=== PATIENT | male | born 1970 | race Caucasian/White ===

== ENCOUNTER 2020-10-27 14:18 | Outpatient (CLI) | payer BC, SELFPAY ==
[2020-10-27 15:30] LABS: SARS-CoV-2 Ag Positive (Negative)
== END 2020-10-27 14:19 | disposition home or self-care (01) ==
LOC: CHSLAB 14:23
PROVIDERS: PCP Internal Medicine; Visit Provider Internal Medicine
DX: U07.1 COVID-19 (principal)
CPT/HCPCS: 87426

== ENCOUNTER 2021-04-24 11:46 | Outpatient (CLI) | payer BC, SELFPAY ==
--- NOTE | ~2021-04-24 | XR_ITS ---
XR_CERV2-3V_CR DATE: 04/24/2021 12:04 INDICATION: Neck pain radiating to left upper extremity TECHNIQUE: AP, open-mouth, lateral views COMPARISON: None FINDINGS: There is 2.5 mm retrolisthesis at C3-4. There is reversal of the lower cervical curvature. C1 and C2 are normally aligned and the odontoid process is intact. No fracture or dislocation or lock ed facet is evident. No prevertebral soft tissue swelling. IMPRESSION: 2.5 mm retrolisthesis at C3-4 Reversal of lower cervical curvature Reviewed, dictated and finalized at [facility]. Reviewed, dictated and finalized at [facility].
== END 2021-04-24 11:47 | disposition home or self-care (01) ==
LOC: CHSIMG 11:48
PROVIDERS: PCP Internal Medicine; Visit Provider Internal Medicine
DX: M54.2 Cervicalgia (principal)
CPT/HCPCS: 72040

== ENCOUNTER 2021-04-25 15:02 | Outpatient (RCR) | payer BC, SELFPAY ==
--- NOTE | 2021-04-25 16:10 | PTOPEVAL ---
Thank you for referring Perry Rodney to [facility].? The patient is scheduled to be seen for therapy? ____x/week for ___ weeks. Please review, sign, date and return this plan of care AICHA. I agree with and certify that the following plan of care is medically necessary. Referring Physician Date Admitting Provider: Attending Provider: Dinesh Kirby MD Referring Provider: *PT Outpatient Evaluation Start: 04/25/21 15:03 Freq: Status: Active Protocol: Document 04/25/21 15:[address] [facility] (Rec: 04/25/21 16:[address] [facility] [id number]) Therapy Assessment Status Assessment Status Assessment Status Evaluation Evaluation Information Problem Diagnosis L cervical radiculopathy Onset 04/24/21 Additional Evaluation Detail quick dash = 79% functionally declined Subjective Information Perry Rodney is a 50 year Query Text:As Reported By Patient/ old male who reports L Family shoulder and cervical pain which began last morning. He notes Radiating pain and numbness into L shoulder extending to his posterior forearm. Rx medication: prednisone ( modified dose pack), celexoxib , cyclobenzaprine taken per MD 's orders. Frequent cervical flex/ext and rotation required for job. 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, ThumbAd in Comments [place]- would be able to look down at computer monitor and look side to side/ up and down without any pain Pain Assessment Timing of Pain Assessment Timing of Pain Assessment Assessment Pain Scale Pain Scale Used Numeric (1 - 10) Self Report Pain Assessment Left Neck Reported Pain Level 2 Lowest Pain Intensity 0 Greatest Pain Intensity 8 Pain Score Pain Score 2: Self Report Interventions Used Interventions Used By Clinicians Activity or ADL's,Electrical Stimulation,Exercise,Heat Cervical and Lumbar ROM Cervical ROM Cervical Flexion (0-60) 40 Query Text:Active in Degrees Cervical Extension (0-70) 29 Query Text:Active in Degrees Cervical Lateral Flexion Right (0-50) 35 Query Text:Active in Degrees Cervical Lateral Flexion Left (0-50) 25 Query Text:Active in Deg
--- NOTE | 2021-07-17 16:14 | PCPTNOTE ---
patient has not been to therapy in nearly 2 months. patient was last re-evaluated and doing well on 05/19/21. as of this date, he will be dc'd from skilled PT services and all progress towards goals will be taken from his most recent evaluation/note. BRENDON
== END 2021-05-19 09:10 | disposition home or self-care (01) ==
LOC: CHSPT 15:02
PROVIDERS: PCP Internal Medicine; Visit Provider Internal Medicine
DX: M54.12 Radiculopathy, cervical region (principal)
CPT/HCPCS: 97012; 97014; 97110; 97161; G0283

== ENCOUNTER 2023-12-09 05:48 | Inpatient (IN) | payer BC, SELFPAY ==
[2023-12-09] VITALS (9 sets, daily range): BP systolic 133–159; BP diastolic 85–96; PULSE 83–100; RESP 15–21; TEMP 36–36.9; O2SAT 93–98; BMI 31.8
--- NOTE | ~2023-12-09 | CT_ITS ---
Non-contrast CT scan of the Abdomen and Pelvis Clinical indication: Abdominal pain Technique: 2.5 mm axial scans were obtained through the abdomen and pelvis without intravenous or or al contrast. Dose reduction technique was used on this scan by utilizing automated exposure control a nd iterative reconstruction technique. The dose-length product (DLP) was 1019.70 mGy-cm. Findings: Images through the lung bases reveal bibasilar atelectatic changes. There is no evidence of renal or ureteral calculi. The kidneys and the ureters are nondilated. There is diffuse fatty infiltration of liver. Pancreatic head is prominent, with surrounding mild inf lammatory change, most compatible with acute pancreatitis. The spleen, gallbladder, and adrenals appe ar normal. There is no aortic aneurysm. There is no evidence of bowel obstruction. Probable reactive wall thickening of the distal duodenum. Small fat-containing umbilical hernia noted. Prominent stool noted in the right colon. Images through the pelvis were performed. There is no evidence of ascites or lymphadenopathy. Urinary bladder unremarkable. Prostate gland and seminal vesicles are unremarkable. Impression: Acute pancreatitis. Diffuse fatty infiltration of liver. Small fat-containing hernia. Prominent stool right colon. Correlate for constipation. Reviewed, dictated and finalized at [facility]. UETTE OPERATOR Impression: Acute pancreatitis. Diffuse fatty infiltration of liver. Small fat-containing hernia. Prominent stool right colon. Correlate for constipation.
--- NOTE | ~2023-12-09 | XR_ITS ---
EXAMINATION: XR abdomen/kub 1V DATE: 12/10/2023 11:34 INDICATION: Abdominal pain and distention. Shortness of breath. TECHNIQUE: A supine view of the abdomen on 3 radiographs was obtained. COMPARISON: CT abdomen and pelvis 12/09/2023 FINDINGS: There is mild atelectasis in right lower lung zone. There are no dilated loops of bowel. Th ere are phleboliths in the pelvis. IMPRESSION: 1. Nonobstructive bowel gas pattern. Reviewed, dictated and finalized at [facility]. ACCOUNTS BANKING REPRESENTATIVE
--- NOTE | ~2023-12-09 | US_ITS ---
EXAMINATION: US abdomen limited DATE: 12/10/2023 11:00 INDICATION: Severe abdominal pain. Pancreatitis. TECHNIQUE: Multiple grayscale and Doppler ultrasound images of the abdomen were obtained. COMPARISON: CT abdomen and pelvis 12/09/2023 FINDINGS: The head of the pancreas demonstrates heterogeneous echogenicity, consistent with acute int erstitial pancreatitis. There is diffuse hepatic steatosis. No liver surface nodularity. There is nor mal flow in main portal vein. The gallbladder is normal in size. No gallstones or gallbladder wall th ickening. There was no sonographic Aleman sign. The common duct is normal and measures 3 mm. IMPRESSION: 1. Acute interstitial pancreatitis. 2. Diffuse hepatic steatosis. Reviewed, dictated and finalized at location [facility]. OSOFT WINDOWS ENGINEER
--- NOTE | ~2023-12-09 | CT_ITS ---
CT of the Abdomen and Pelvis: Indication: Pancreatitis Technique: 2.5 mm axial scans were obtained through the abdomen and pelvis following intravenous adm inistration of 100 cc of Omnipaque 350. Dose reduction technique was used on this scan by utilizing a utomated exposure control and iterative reconstruction technique. The dose-length product (DLP) was 9 53.31 mGy-cm. COMPARISON: 12/09/2023 Findings: Scans through the lung bases measurement minimal right pleural fluid with bibasilar atelec tatic change. There is diffuse fatty infiltration of the liver. The spleen, gallbladder, adrenals and kidneys are w ithin normal limits. Peripancreatic inflammatory changes and retroperitoneal fluid are similar to meng or exam, compatible with acute pancreatitis. No pancreatic necrosis or pseudocyst evident. No evidenc e of aortic aneurysm. No lymphadenopathy. No bowel obstruction or bowel wall thickening. There is no evidence to suggest acute appendicitis. Sm all fat-containing umbilical hernia again noted. Images through the pelvis were performed. Urinary bladder unremarkable. No pelvic mass seen. Impression: Acute pancreatitis, without significant change from prior exam. Diffuse fatty infiltration of liver. Reviewed, dictated and finalized at location . FIC DIVISION COMMANDING OFFICER Impression: Acute pancreatitis, without significant change from prior exam. Diffuse fatty infiltration of liver.
--- NOTE | 2023-12-09 06:02 | ED.ABDPAIN ---
HPI - Abdominal Pain General Chief Complaint: Abdominal Pain <Paulino Cuellar MD - Last Filed: 12/09/23 07:12> Stated Complaint: Abd Pain <Paulino Cuellar MD - Last Filed: 12/09/23 07:12> Time Seen by Provider: 12/09/23 05:56 <Paulino Cuellar MD - Last Filed: 12/09/23 07:12> Source: patient <Paulino Cuellar MD - Last Filed: 12/09/23 07:12> Mode of arrival: ambulatory <Paulino Cuellar MD - Last Filed: 12/09/23 07:12> Limitations: no limitations <Paulino Cuellar MD - Last Filed: 12/09/23 07:12> History of Present Illness HPI narrative: patient is a 52-year-old male with generalized abdominal pain for the past 3 days. He has not had a bowel movement in 3 days. He tried stool softeners and similar medication to try to have a bowel movement without success. <Paulino Cuellar MD - Last Filed: 12/09/23 07:12> MD elicited complaint: abdominal pain <Paulino Cuellar MD - Last Filed: 12/09/23 07:12> Pertinent past history: none <Paulino Cuellar MD - Last Filed: 12/09/23 07:12> Onset (ago): day(s) (3) <Paulino Cuellar MD - Last Filed: 12/09/23 07:12> Pain Consistency: constant <Paulino Cuellar MD - Last Filed: 12/09/23 07:12> Location: diffuse and epigastric <Paulino Cuellar MD - Last Filed: 12/09/23 07:12> Severity: severe <Paulino Cuellar MD - Last Filed: 12/09/23 07:12> Pain scale (0-10): 8 <MD Johnny Roach Last Filed: 12/09/23 07:12> Quality: fullness and sharp <Paulino Cuellar MD - Last Filed: 12/09/23 07:12> Radiation: none <Paulino Cuellar MD - Last Filed: 12/09/23 07:12> Migration to: no migration <Paulino Cuellar MD - Last Filed: 12/09/23 07:12> Exacerbating factors: nothing <Paulino Cuellar MD - Last Filed: 12/09/23 07:12> Relieving factors: nothing <Paulino Cuellar MD - Last Filed: 12/09/23 07:12> Associated symptoms: denies other symptoms <Paulino Cuellar MD - Last Filed: 12/09/23 07:12> Related Data Home Medications: Home Medications Medication Instructions Recorded Confirmed No Home Medications 12/09/23 12/09/23 <Paulino Cuellar MD - Last Filed: 12/09/23 07:12> Allergies/Adverse Reactions: Allergies Allergy/AdvReac Type Severity Reaction Status Date / Time Penicillins Allergy Unknown Verified 12/09/23 05:57 <Paulino Cuellar MD - Last Filed: 12/09/23 07:12> Review of Systems Review of Systems: All systems reviewed & are unremarkable except as noted in HPI and below <Paulino Cuellar MD - Last Filed: 12/09/23 07:12> Constitutional: Constitutional: Reports no additional constitutional complaints <Paulino Cuellar MD - Last Filed: 12/09/23 07:12> Eyes: Eyes: Reports no additional eye complaints <Paulino Cuellar MD - Last Filed: 12/09/23 07:12> ENT: Reports system reviewed and no additional complaints, except as documented <Paulino Cuellar MD - Last Filed: 12/09/23 07:12> Cardiovascular: Cardiovascular: Reports no additional cardiovascular complaints <Paulino Cuellar MD - Last Filed: 12/09/23 07:12> Respiratory: Respiratory: Reports no additional respiratory complaints <Paulino Cuellar MD - Last Filed: 12/09/23 07:12> Gastrointestinal: Gastrointestinal: Reports no additional gastrointestinal complaints <Paulino Cuellar MD - Last Filed: 12/09/23 07:12> Genitourinary: Genitourinary: Reports no additional male genitourinary complaints <Paulino Cuellar MD - Last Filed: 12/09/23 07:12> Musculoskeletal: Musculoskeletal: Reports no additional musculoskeletal complaints <Paulino Cuellar MD - Last Filed: 12/09/23 07:12> Integumentary/Breasts: Skin/Breast: Reports system reviewed and no additional complaints, except as docu <Paulino Cuellar MD - Last Filed: 12/09/23 07:12> Neurologic: Reports system reviewed and no additional complaints, except as documented <Paulino Cuellar MD - Last File
[2023-12-09 06:32] LABS: Basophils Absolute Auto 0.03 K/mm3 (0.00-0.10); Basophils Percent Auto 0.2 % (0.0-1.0); Eosinophils Absolute Auto 0.02 K/mm3 (0.02-0.50); Eosinophils Percent Auto 0.1 % (1.0-6.0); Hematocrit 47.2 % (40.0-54.0); Hemoglobin 16.5 g/dL (14.0-18.0); Immature Granulocyte Absolute 0.21 K/mm3 (0.00-0.00); Immature Granulocyte Percent A 1.5 % (0.0-0.0); Lymphocytes Absolute Auto 1.14 K/mm3 (1.10-4.50); Lymphocytes Percent Auto 8.4 % (18.0-42.0); Mean Corpuscular Hemoglobin 30.8 pg (27.0-31.0); Mean Corpuscular Volume 88.1 fL (78.0-102.0); Mean Platelet Volume 9.5 fl (8.7-11.0); Monocytes Absolute Auto 1.63 K/mm3 (0.10-0.90); Neutrophils Absolute Auto 10.6 K/mm3 (1.7-7.2); Neutrophils Percent Auto 77.8 % (50.0-70.0); Platelet Count Result 252 K/mm3 (150-420); Red Blood Count 5.36 M/mm3 (4.70-6.10); Red Cell Distribution Width 11.5 % (11.6-14.4); White Blood Count 13.6 K/mm3 (4.8-10.8)
[2023-12-09 06:51] LABS: Alanine Aminotransferase 36 U/L (16-63); Albumin Level 2.7 g/dL (3.4-5.0); Alkaline Phosphatase 73 U/L (46-116); Anion Gap 13 mmol/L (8-16); Aspartate Amino Transferase 16 U/L (15-37); Bilirubin,Total 1.4 mg/dL (0.00-1.00); Blood Urea Nitrogen 14 mg/dL (7-18); Calcium 8.3 mg/dL (8.5-10.1); Carbon Dioxide 24 mmol/L (21-32); Chloride 92 mmol/L (98-108); Estimated CRCL calculation 85 ml/min; Estimated Glomerular Filt Rate > 60; Glucose 236 mg/dL (70-99); Osmolality Calculated 276 mOsm/kg (285-295); Potassium 4.1 mmol/L (3.5-5.1); Sodium 129 mmol/L (136-145); Total Protein 7.4 g/dL (6.4-8.2)
[2023-12-09] MEDS: metroNIDAZOLE 500 MG/ISO 100ML 500 MG/100 ML BAG 100 MG IVPB ×3 (06:58→21:04)
[2023-12-09 06:59] LABS: SARS-CoV-2 RNA PCR Negative (Negative)
[2023-12-09 07:00] LABS: Influenza A QL RT-PCR Negative (Negative); Influenza B QL RT-PCR Negative (Negative); RSV RNA, RT-PCR Negative (Negative)
[2023-12-09] MEDS: SODIUM CHLORIDE 0.9% IV 1,000 ML 999 ML IV CONT (07:01)
[2023-12-09] MEDS: MORPHINE SULFATE (*CRX) 4 MG/ML INJ IV PUSH (07:02)
[2023-12-09 07:05] LABS: Lipase 302 U/L (16-77)
--- NOTE | 2023-12-09 07:45 | PC.NURSE ---
Patient ambulatory to bathroom with steady gait.
--- NOTE | 2023-12-09 07:57 | PC.NURSE ---
Patient ambulatory back to ED room 1 with steady gait. Patient was able to have large bowel movement
[2023-12-09] MEDS: levoFLOXacin 750 MG/D5W 150 ML 750 MG/150 ML BAG 100 MG IVPB (07:59)
--- NOTE | 2023-12-09 08:15 | ADMGEN ---
This patient, Perry Rodney, was admitted to 2nd Floor Room 226-2. Patient/family oriented to hospital policies and general routines including ID bracelet, bed and alarms, visiting hours, pain management, procedures, bathroom and other care routines, personal items, smoking policy, room service/diet, and visiting hours. Information on how to activate the Rapid Response Team has been discussed. Patient/Family are encouraged to report perceived risks to care and to ask questions if they do not understand what they are told or what they should do.
[2023-12-09] MEDS: ACETAMINOPHEN 325 MG TABLET 650 MG PO ×2 (08:32→15:58)
[2023-12-09] MEDS: SODIUM CHLORIDE 0.9% IV 1,000 ML 100 ML IV CONT ×2 (09:41→21:05)
[2023-12-09] MEDS: KETOROLAC 15 MG/ML VIAL (*BKC) 30 MG IV PUSH ×2 (09:44→15:56)
[2023-12-09] MEDS: MORPHINE SULFATE (*CRX) 2 MG/ML INJ IV PUSH ×3 (14:37→21:58)
[2023-12-09] MEDS: ONDANSETRON INJ 4 MG/2 ML VIAL IV PUSH ×2 (15:56→21:59)
[2023-12-10] VITALS: BP 153/86; PULSE 75; RESP 16; TEMP 36.3; O2SAT 93
[2023-12-10] MEDS: ACETAMINOPHEN 325 MG TABLET 650 MG PO ×4 (00:07→23:57)
[2023-12-10] MEDS: KETOROLAC 15 MG/ML VIAL (*BKC) 30 MG IV PUSH ×3 (03:01→22:08)
[2023-12-10 05:33] LABS: Basophils Absolute Auto 0.02 K/mm3 (0.00-0.10); Basophils Percent Auto 0.2 % (0.0-1.0); Eosinophils Absolute Auto 0.08 K/mm3 (0.02-0.50); Eosinophils Percent Auto 0.8 % (1.0-6.0); Hematocrit 41.7 % (40.0-54.0); Hemoglobin 14.2 g/dL (14.0-18.0); Immature Granulocyte Absolute 0.11 K/mm3 (0.00-0.00); Immature Granulocyte Percent A 1.1 % (0.0-0.0); Lymphocytes Absolute Auto 1.02 K/mm3 (1.10-4.50); Lymphocytes Percent Auto 9.8 % (18.0-42.0); Mean Corpuscular HGB Conc 34.1 g/dL (32.0-36.0); Mean Corpuscular Hemoglobin 30.9 pg (27.0-31.0); Mean Corpuscular Volume 90.8 fL (78.0-102.0); Mean Platelet Volume 9.8 fl (8.7-11.0); Monocytes Absolute Auto 1.09 K/mm3 (0.10-0.90); Monocytes Percent Auto 10.5 % (2.0-11.0); Neutrophils Absolute Auto 8.1 K/mm3 (1.7-7.2); Neutrophils Percent Auto 77.6 % (50.0-70.0); Platelet Count Result 219 K/mm3 (150-420); Red Blood Count 4.59 M/mm3 (4.70-6.10); Red Cell Distribution Width 11.6 % (11.6-14.4); White Blood Count 10.4 K/mm3 (4.8-10.8)
[2023-12-10 05:49] LABS: Alanine Aminotransferase 24 U/L (16-63); Albumin Level 2.2 g/dL (3.4-5.0); Alkaline Phosphatase 62 U/L (46-116); Anion Gap 11 mmol/L (8-16); Aspartate Amino Transferase 13 U/L (15-37); Bilirubin,Total 0.6 mg/dL (0.00-1.00); Blood Urea Nitrogen 12 mg/dL (7-18); Calcium 7.6 mg/dL (8.5-10.1); Carbon Dioxide 25 mmol/L (21-32); Chloride 99 mmol/L (98-108); Estimated CRCL calculation 102 ml/min; Estimated Glomerular Filt Rate > 60; Glucose 162 mg/dL (70-99); Osmolality Calculated 283 mOsm/kg (285-295); Potassium 4.1 mmol/L (3.5-5.1); Sodium 135 mmol/L (136-145); Total Protein 6.4 g/dL (6.4-8.2)
[2023-12-10] MEDS: metroNIDAZOLE 500 MG/ISO 100ML 500 MG/100 ML BAG 100 MG IVPB ×3 (06:01→22:09)
[2023-12-10 08:01] LABS: Lipase 1614 U/L (16-77)
[2023-12-10] MEDS: SODIUM CHLORIDE 0.9% IV 1,000 ML 100 ML IV CONT (08:10)
[2023-12-10] MEDS: MORPHINE SULFATE (*CRX) 2 MG/ML INJ IV PUSH (08:17)
[2023-12-10] MEDS: levoFLOXacin 750 MG/D5W 150 ML 750 MG/150 ML BAG 100 MG IVPB (08:17)
--- NOTE | 2023-12-10 10:01 | PM.IMHP ---
H&P: HPI History of Present Illness Date/Time: 12/10/23 10:01 Chief Complaint: Abdominal pain acute pancreatitis Narrative: This is a 52 year old male with no significant past medical history who presented to the hospital with a 3 day history of worsening abdominal pain. Work up in the hospital includes CT of the abdomen and pelvis that shown acute pancreatitis, diffuse fatty infiltration of liver, small fat-containing hernia, prominent stool in right colon. Labs initially revealed WBC of 13.6, Na+ 129, chloride 92, Ca+ 8.3, total bilirubin 1.4, liver enzymes were normal, albumin 2.7, Lipase 302. Respiratory panel was obtained and negative for Influenza, RSV, and Covid. Blood cultures were obtained and pending. He was given pain medications, started on IVF while in the ER. He was then started on Levaquin and metronidazole. On examination today patient is alert and oriented x3, lying in the bed. is at the bedside. He is reporting 8/10 pain in the epigastric region that radiates to his back. He has not been getting much relief with his current pain regimen. B/P's are elevated, he is on room air, currently afebrile. He denies and fever, chills, nausea, vomiting, diarrhea, shortness of breath or chest pain. Labs today revealed WBC 10.4, Na+ 135, BG ranging 162-276, Ca+ 7.6,albumin 2.2, Lipase 1614, total bili 0.6. US of abdomen was ordered and shown a normal gallbladder with normal portal vein flow, common bile duct is normal. US did show acute interstitial pancreatitis, and diffuse hepatic steatosis. He also had a KUB done today due to a bout of constipation. He states that he did have a BM yesterday but prior to that he was constipated without BM for at least 3 days. KUB shown normal gas pattern. Pain medications have been adjusted and we will continue to monitor labs. CT, US, and labs are not impressive for infectious process. I will go ahead and discontinue antibiotics as they are not clinically indicated for acute pancreatitis unless there was evidence of necrotizing pancreatitis or a fluid collection. His work up has been negative for both. I went ahead and changed his fluids to LR and we will recheck labs in the morning. Review of Systems Review of Systems: All systems reviewed & are unremarkable except as noted in HPI and below Constitutional: Constitutional: Reports as per HPI and Reports no additional constitutional complaints Eyes: Eyes: Reports as per HPI and Reports no additional eye complaints ENT: Reports system reviewed and no additional complaints, except as documented and Reports as per HPI Cardiovascular: Cardiovascular: Reports as per HPI and Reports no additional cardiovascular complaints Respiratory: Respiratory: Reports as per HPI and Reports no additional respiratory complaints Gastrointestinal: Gastrointestinal: Reports as per HPI and Reports no additional gastrointestinal complaints Genitourinary: Genitourinary: Reports no additional male genitourinary complaints and Reports as per HPI Musculoskeletal: Musculoskeletal: Reports no additional musculoskeletal complaints and Reports as per HPI Integumentary/Breasts: Skin/Breast: Reports system reviewed and no additional complaints, except as docu and Reports as per HPI Neurologic: Reports system reviewed and no additional complaints, except as documented and Reports as per HPI Psychiatric: Psychiatric: Reports no additional psychiatric complaints and Reports as per HPI [facility] Past Medical History Medical History (Updated 12/10/23 @ 23:50 by Krystle Jackson APRN) Hyperglycemia Obesity Pancreatitis Social History Social History Smoking status: Former smoker Tobacco type: cigarettes Second hand tobacco smoke exposure: No Alcohol intake: current Drinks per week: 30 Substance use: never Do You Feel Safe in your Home?: Yes Lack of Transportation: No Lack of Food: Never True Current Housing:
[2023-12-10 10:52] VITALS: O2SAT 98
[2023-12-10] MEDS: HYDROmorphone HCL INJ (*CRX) 2 MG/ML VIAL 1 MG IV PUSH (11:00)
[2023-12-10] MEDS: oxyCODONE/ACETAMINOPHEN (*CRX) 5-325 MG TABLET PO ×3 (11:01→19:55)
[2023-12-10 11:48] VITALS: BP 158/94; PULSE 84; RESP 18; TEMP 37.5; O2SAT 98
--- NOTE | 2023-12-10 11:49 | PC.NURSE ---
uls and xrays done. claims pain meds at this time has worked. pain is calmed. at bedside.
[2023-12-10] MEDS: LACTATED RINGERS 1,000 ML 100 ML IV CONT ×2 (12:07→19:57)
[2023-12-10 15:40] VITALS: BP 163/96; PULSE 73; RESP 18; TEMP 36.1; O2SAT 96
[2023-12-10 20:00] VITALS: BP 157/95; PULSE 76; RESP 16; TEMP 36.6; O2SAT 95
[2023-12-11] VITALS: BP 144/87; PULSE 70; RESP 20; TEMP 36.2; O2SAT 96
--- NOTE | 2023-12-11 00:05 | PC.NURSE ---
Pt resting quietly in bed and states he has moderate abdominal pain and rated it a '5' on a 1-10 pain scale. Pt given acetaminophen 650 mg PO as ordered to relieve abdominal pain.
[2023-12-11] MEDS: oxyCODONE/ACETAMINOPHEN (*CRX) 5-325 MG TABLET PO (02:34)
--- NOTE | 2023-12-11 02:40 | PC.NURSE ---
Pt c/o abdominal pain radiating to his back and requested pain medication. Pt rates his pain as a '7' on a 1-10 pain scale. Pt given Percocet 5/325 mg PO x2 tablets to relieve discomfort.
--- NOTE | 2023-12-11 03:30 | PC.NURSE ---
Pt asleep and IV fluid continues to infuse as ordered. No signs of discomfort noted and Percocet effective in relieving abdominal pain.
[2023-12-11 04:00] VITALS: BP 148/87; PULSE 68; RESP 20; TEMP 36.1; O2SAT 96
--- NOTE | 2023-12-11 04:20 | PC.NURSE ---
1200 ml of clear, thelma urine emptied from the urinal.
[2023-12-11 05:23] LABS: Basophils Absolute Auto 0.02 K/mm3 (0.00-0.10); Basophils Percent Auto 0.2 % (0.0-1.0); Eosinophils Absolute Auto 0.16 K/mm3 (0.02-0.50); Hematocrit 37.8 % (40.0-54.0); Hemoglobin 13.1 g/dL (14.0-18.0); Immature Granulocyte Absolute 0.07 K/mm3 (0.00-0.00); Immature Granulocyte Percent A 0.9 % (0.0-0.0); Lymphocytes Absolute Auto 0.99 K/mm3 (1.10-4.50); Lymphocytes Percent Auto 12.1 % (18.0-42.0); Mean Corpuscular HGB Conc 34.7 g/dL (32.0-36.0); Mean Corpuscular Hemoglobin 31.6 pg (27.0-31.0); Mean Corpuscular Volume 91.1 fL (78.0-102.0); Mean Platelet Volume 9.5 fl (8.7-11.0); Monocytes Absolute Auto 0.81 K/mm3 (0.10-0.90); Monocytes Percent Auto 9.9 % (2.0-11.0); Neutrophils Absolute Auto 6.1 K/mm3 (1.7-7.2); Neutrophils Percent Auto 74.9 % (50.0-70.0); Platelet Count Result 213 K/mm3 (150-420); Red Blood Count 4.15 M/mm3 (4.70-6.10); Red Cell Distribution Width 11.6 % (11.6-14.4); White Blood Count 8.2 K/mm3 (4.8-10.8)
--- NOTE | 2023-12-11 05:30 | PC.NURSE ---
Pt requested another dose of Percocet. Pt was told he couldnt have anymore Percocet until 0630. Pt said the RAWHIDE TRIMMER said staff could call her to get more pain medication if needed and pt was insistent that staff call the RAWHIDE TRIMMER to get more pain medication. RAWHIDE TRIMMER was notified and she said pt could have dilaudid this once to keep pain under control. Pt given dilaudid 1 mg IVP as ordered.
[2023-12-11 05:39] LABS: Hemoglobin A1C 9.1 % (<5.7)
[2023-12-11 05:55] LABS: Alanine Aminotransferase 24 U/L (16-63); Albumin Level 2.1 g/dL (3.4-5.0); Alkaline Phosphatase 64 U/L (46-116); Anion Gap 9 mmol/L (8-16); Aspartate Amino Transferase 14 U/L (15-37); Bilirubin,Total 0.5 mg/dL (0.00-1.00); Blood Urea Nitrogen 10 mg/dL (7-18); Calcium 7.5 mg/dL (8.5-10.1); Carbon Dioxide 28 mmol/L (21-32); Chloride 100 mmol/L (98-108); Estimated CRCL calculation 104 ml/min; Estimated Glomerular Filt Rate > 60; Glucose 159 mg/dL (70-99); Lipase 93 U/L (16-77); Osmolality Calculated 286 mOsm/kg (285-295); Potassium 4.4 mmol/L (3.5-5.1); Sodium 137 mmol/L (136-145)
[2023-12-11] MEDS: HYDROmorphone HCL INJ (*CRX) 2 MG/ML VIAL 1 MG IV PUSH (05:57)
[2023-12-11 06:07] LABS: CRP > 25.0 mg/dL (0.0-0.9)
[2023-12-11] MEDS: LACTATED RINGERS 1,000 ML 100 ML IV CONT ×2 (07:18→21:41)
--- NOTE | 2023-12-11 07:18 | PC.NURSE ---
New bag of LR infusing; Pt states the dilaudid only worked for an hour and he rated his pain as an '8' at this time.
[2023-12-11 08:08] LABS: Glucose Point of Care 156 mg/dl (65-105)
--- NOTE | 2023-12-11 08:10 | PC.NURSE ---
Patient off floor to CT
--- NOTE | 2023-12-11 08:45 | PC.NURSE ---
Patient returned from CT
[2023-12-11] MEDS: ACETAMINOPHEN 325 MG TABLET 650 MG PO ×2 (08:50→16:58)
[2023-12-11] MEDS: ONDANSETRON INJ 4 MG/2 ML VIAL IV PUSH (08:50)
[2023-12-11] MEDS: KETOROLAC 15 MG/ML VIAL (*BKC) 30 MG IV PUSH (08:50)
[2023-12-11] MEDS: DOCUSATE SODIUM 100 MG CAPSULE PO ×2 (08:50→21:25)
[2023-12-11] MEDS: amLODIPine BESYLATE 2.5 MG TABLET PO (08:51)
[2023-12-11] MEDS: polyethylene glycoL 3350 17 GM POWD.PACK PO (08:54)
[2023-12-11] MEDS: ENOXAPARIN 40 MG/0.4 ML SYRINGE SUB-Q (08:54)
--- NOTE | 2023-12-11 11:27 | PC.NURSE ---
Called admitting to make him a inpatient as of 1109.
--- NOTE | 2023-12-11 12:19 | P.PNIM_ITS ---
Progress Note: A&P Assessment and Plan (1) Pancreatitis: Qualifiers: Chronicity: acute Pancreatitis type: alcohol induced Acute pancreatitis complication: no infection or necrosis Qualified Code(s): K85.20 - Alcohol induced acute pancreatitis without necrosis or infection Code(s): K85.90 - Acute pancreatitis without necrosis or infection, unspecified Status: Acute Assessment and Plan: * CT of abdomen/pelvis revealed acute pancreatitis, diffuse fatty infiltration of liver, small fat-containing hernia, prominent stool right colon. No evidence of blockage. * Abdomen US shown acute interstitial pancreatitis, diffuse hepatic steatosis * Lipase level initially 302, now 1614 * Total bili initially 1.4, now 0.6 * WBC initially 13.6, now 10.4-likely inflammatory response * He was given Flagyl and Levaquin, will discontinue now as there is no evidence of necrotizing pancreatitis or a fluid collection. * Continue IVF with LR * Continue pain control with Percocet as first line pain control and Dilaudid IVP for second line pain control for breakthrough pain. * Will repeat CBC, CMP, Lipase, CRP in a.m. * Start with Clear liquid diet and advance diet as tolerated to diabetic diet for now 12/11: lipase level improved to 93. Patient able to advance diet and pain is improving. Continue IV fluids. Diabetic diet and low-fat ordered. (2) Hyperglycemia: Code(s): R73.9 - Hyperglycemia, unspecified Status: Acute Assessment and Plan: * BG ranging 162-236 * No past medical history of DM * Will check a Hgb A1C in the morning * Accu checks AC/HS * hypoglycemic protocol ordered * Low dose SSI ordered * advance diet as tolerated to diabetic diet, if Hgb A1C is normal may change to a regular diet and discontinue diabetic protocols. 12/11: Hemoglobin A1c 9.1. Patient educated on new diagnosis of diabetes. Close follow-up with primary care discussed and detail at length and patient encouraged to call this afternoon to schedule follow-up visit. Will cover with sliding scale insulin during this hospital stay but will defer initiating new medication to primary care. Discussed lifestyle changes which will augment medication but explained to patient that he will likely be on a couple of medications at next primary care visit. Discussed ways to cut back on alcohol, soda, candy. Discussed pain out of pocket for continuous glucose monitor to check what foods increase his sugar. Patient and significant other very interested in improvements they can you do (3) Hypertension: Code(s): I10 - Essential (primary) hypertension Status: Acute Assessment and Plan: * Blood pressures ranging 153/96-163/96 * Hydralazine 10 mg IVP ordered PRN with parameters * Will start low dose amlodipine 2.5mg as he has not history of hypertension and is not on any home medications. May need adjusting as necessary. (4) Hyponatremia: Code(s): E87.1 - Hypo-osmolality and hyponatremia Status: Resolved Assessment and Plan: * Initial Na+ 129, now 135 * serum osmolarity 283 * Continue to trend labs * 12/11: sodium has normalized at 137, resolved (5) Constipation: Code(s): K59.00 - Constipation, unspecified Status: Acute Assessment and Plan: * Patient reported 3 days of constipation prior to yesterday * KUB showing normal gas patterns * Last BM yesterday * Will start Miralax and colace daily * Bisacodyl suppository or tablet available PRN 12/11: large bowel movement this morning with pain relief. (6) Obesity: Code(s): E66.9 - Obesity, unspecified
--- NOTE | 2023-12-11 12:19 | PM.IMPN ---
Progress Note: A&P Assessment and Plan (1) Pancreatitis: Qualifiers: Chronicity: acute Pancreatitis type: alcohol induced Acute pancreatitis complication: no infection or necrosis Qualified Code(s): K85.20 - Alcohol induced acute pancreatitis without necrosis or infection Code(s): K85.90 - Acute pancreatitis without necrosis or infection, unspecified Status: Acute Assessment and Plan: CT of abdomen/pelvis revealed acute pancreatitis, diffuse fatty infiltration of liver, small fat-containing hernia, prominent stool right colon. No evidence of blockage. Abdomen US shown acute interstitial pancreatitis, diffuse hepatic steatosis Lipase level initially 302, now 1614 Total bili initially 1.4, now 0.6 WBC initially 13.6, now 10.4-likely inflammatory response He was given Flagyl and Levaquin, will discontinue now as there is no evidence of necrotizing pancreatitis or a fluid collection. Continue IVF with LR Continue pain control with Percocet as first line pain control and Dilaudid IVP for second line pain control for breakthrough pain. Will repeat CBC, CMP, Lipase, CRP in a.m. Start with Clear liquid diet and advance diet as tolerated to diabetic diet for now 12/11: lipase level improved to 93. Patient able to advance diet and pain is improving. Continue IV fluids. Diabetic diet and low-fat ordered. (2) Hyperglycemia: Code(s): R73.9 - Hyperglycemia, unspecified Status: Acute Assessment and Plan: BG ranging 162-236 No past medical history of DM Will check a Hgb A1C in the morning Accu checks AC/HS hypoglycemic protocol ordered Low dose SSI ordered advance diet as tolerated to diabetic diet, if Hgb A1C is normal may change to a regular diet and discontinue diabetic protocols. 12/11: Hemoglobin A1c 9.1. Patient educated on new diagnosis of diabetes. Close follow-up with primary care discussed and detail at length and patient encouraged to call this afternoon to schedule follow-up visit. Will cover with sliding scale insulin during this hospital stay but will defer initiating new medication to primary care. Discussed lifestyle changes which will augment medication but explained to patient that he will likely be on a couple of medications at next primary care visit. Discussed ways to cut back on alcohol, soda, candy. Discussed pain out of pocket for continuous glucose monitor to check what foods increase his sugar. Patient and significant other very interested in improvements they can you do (3) Hypertension: Code(s): I10 - Essential (primary) hypertension Status: Acute Assessment and Plan: Blood pressures ranging 153/96-163/96 Hydralazine 10 mg IVP ordered PRN with parameters Will start low dose amlodipine 2.5mg as he has not history of hypertension and is not on any home medications. May need adjusting as necessary. (4) Hyponatremia: Code(s): E87.1 - Hypo-osmolality and hyponatremia Status: Resolved Assessment and Plan: Initial Na+ 129, now 135 serum osmolarity 283 Continue to trend labs 12/11: sodium has normalized at 137, resolved (5) Constipation: Code(s): K59.00 - Constipation, unspecified Status: Acute Assessment and Plan: Patient reported 3 days of constipation prior to yesterday KUB showing normal gas patterns Last BM yesterday Will start Miralax and colace daily Bisacodyl suppository or tablet available PRN 12/11: large bowel movement this morning with pain relief. (6) Obesity: Code(s): E66.9 - Obesity, unspecified Status: Acute Assessment and Plan: BMI 31.9, 97.9kg (7) New onset type 2 diabetes mellitus: Code(s): E11.9 - Type 2 diabetes mellitus without complications Status: Acute Assessment and Plan: see hyperglycemia above Plan CT scan abdomen pelvis with IV contrast ordered to make sure no abscess since prior CT scan was noncontrast ag
[2023-12-11 12:22] LABS: Glucose Point of Care 190 mg/dl (65-105)
[2023-12-11] MEDS: KETOROLAC 15 MG/ML VIAL (*BKC) IV PUSH ×2 (12:56→17:56)
[2023-12-11] MEDS: oxyCODONE HCL (*CRX) 5 MG TAB IR 10 MG PO ×3 (12:57→21:26)
[2023-12-11 16:00] VITALS: BP 152/97; PULSE 76; RESP 18; TEMP 36.1; O2SAT 96
[2023-12-11 17:04] LABS: Glucose Point of Care 152 mg/dl (65-105)
[2023-12-11 21:58] LABS: Glucose Point of Care 212 mg/dl (65-105)
[2023-12-12] VITALS: BP 147/97; PULSE 83; RESP 16; TEMP 36.8; O2SAT 96
[2023-12-12] MEDS: ONDANSETRON INJ 4 MG/2 ML VIAL IV PUSH (00:33)
[2023-12-12] MEDS: ACETAMINOPHEN 325 MG TABLET 650 MG PO ×2 (00:33→08:10)
[2023-12-12] MEDS: oxyCODONE HCL (*CRX) 5 MG TAB IR 10 MG PO ×3 (00:33→09:07)
[2023-12-12] MEDS: KETOROLAC 15 MG/ML VIAL (*BKC) IV PUSH ×3 (00:34→12:45)
[2023-12-12 05:08] LABS: Basophils Absolute Auto 0.04 K/mm3 (0.00-0.10); Basophils Percent Auto 0.4 % (0.0-1.0); Eosinophils Absolute Auto 0.17 K/mm3 (0.02-0.50); Eosinophils Percent Auto 1.8 % (1.0-6.0); Hematocrit 37.5 % (40.0-54.0); Hemoglobin 12.8 g/dL (14.0-18.0); Immature Granulocyte Percent A 1.1 % (0.0-0.0); Lymphocytes Absolute Auto 1.28 K/mm3 (1.10-4.50); Lymphocytes Percent Auto 13.9 % (18.0-42.0); Mean Corpuscular HGB Conc 34.1 g/dL (32.0-36.0); Mean Corpuscular Hemoglobin 31.3 pg (27.0-31.0); Mean Corpuscular Volume 91.7 fL (78.0-102.0); Mean Platelet Volume 9.3 fl (8.7-11.0); Monocytes Absolute Auto 0.79 K/mm3 (0.10-0.90); Monocytes Percent Auto 8.6 % (2.0-11.0); Neutrophils Absolute Auto 6.8 K/mm3 (1.7-7.2); Neutrophils Percent Auto 74.2 % (50.0-70.0); Platelet Count Result 238 K/mm3 (150-420); Red Blood Count 4.09 M/mm3 (4.70-6.10); Red Cell Distribution Width 11.7 % (11.6-14.4); White Blood Count 9.2 K/mm3 (4.8-10.8)
[2023-12-12 05:28] LABS: Alanine Aminotransferase 23 U/L (16-63); Alkaline Phosphatase 65 U/L (46-116); Anion Gap 8 mmol/L (8-16); Aspartate Amino Transferase 16 U/L (15-37); Bilirubin,Total 0.3 mg/dL (0.00-1.00); Blood Urea Nitrogen 9 mg/dL (7-18); Calcium 7.7 mg/dL (8.5-10.1); Carbon Dioxide 30 mmol/L (21-32); Chloride 101 mmol/L (98-108); Estimated CRCL calculation 104 ml/min; Estimated Glomerular Filt Rate > 60; Glucose 176 mg/dL (70-99); Lipase 61 U/L (16-77); Osmolality Calculated 290 mOsm/kg (285-295); Potassium 4.2 mmol/L (3.5-5.1); Sodium 139 mmol/L (136-145); Total Protein 5.9 g/dL (6.4-8.2)
[2023-12-12 05:31] LABS: CRP 17.6 mg/dL (0.0-0.9)
[2023-12-12 07:42] LABS: Glucose Point of Care 180 mg/dl (65-105)
[2023-12-12 08:00] VITALS: BP 141/79; PULSE 69; RESP 14; TEMP 36.3; O2SAT 95
--- NOTE | 2023-12-12 08:33 | PM.DS ---
DS: Admitting Diagnosis Discharge Date 12/12/2023 Admitting Diagnosis Pancreatitis, hyperglycemia, hypertension, hyponatremia, obesity DS: Discharge Diagnosis Discharge Diagnosis (1) Pancreatitis: Qualifiers: Acute pancreatitis complication: no infection or necrosis Chronicity: acute Pancreatitis type: alcohol induced Qualified Code(s): K85.20 - Alcohol induced acute pancreatitis without necrosis or infection Code(s): K85.90 - Acute pancreatitis without necrosis or infection, unspecified Status: Acute (2) New onset type 2 diabetes mellitus: Code(s): E11.9 - Type 2 diabetes mellitus without complications Status: Acute (3) Hyperglycemia: Code(s): R73.9 - Hyperglycemia, unspecified Status: Acute (4) Hypertension: Code(s): I10 - Essential (primary) hypertension Status: Acute (5) Hyponatremia: Code(s): E87.1 - Hypo-osmolality and hyponatremia Status: Resolved (6) Constipation: Code(s): K59.00 - Constipation, unspecified Status: Acute (7) Obesity: Code(s): E66.9 - Obesity, unspecified Status: Chronic DS: Summary Hospital Course Reason for hospitalization: Abdominal pain nausea vomiting pancreatitis and hyperglycemia Hospital Course: This is a 52-year-old male patient history of regular alcohol use presented to the hospital with nausea vomiting abdominal pain. Patient found to CT imaging of acute pancreatitis. Lipase was minimally elevated initially and then anna higher the following day. Patient admitted for IV fluids, pain control, bowel rest, advanced diet as tolerated. During admissions screening labs patient had elevated glucose. A1c was obtained and resulted at 9.1. Patient was educated regarding new onset type 2 diabetes in the importance follow-up with primary care. Education regarding drinking, dietary changes, lifestyle changes was held in depth over the course of 2 days. On date of discharge lipase had returned to normal patient was feeling much better. He was tolerating a low-fat diabetic diet. Patient made PCP follow-up appointment on 12/16. Status at Discharge Cognitive/behavioral status at discharge: Awake alert oriented and pleasant Functional status at discharge: independent ambulation Overall status at discharge: patient is progressing back to baseline Time Spent with Patient Time attestation: Total time spent providing and/or coordinating discharge services: 40 minutes Exam Narrative: GENERAL: Well-appearing, obese, and in no acute distress. HEAD: Normocephalic, atraumatic. ENT:? Mucous membranes moist. CHEST: Clear to auscultation.? No respiratory distress. HEART: Regular rate and rhythm. ? Normal peripheral pulses. ABDOMEN: Soft, nondistended, epigastric tenderness to palpation EXTREMITIES: Normal range of motion. No peripheral edema. SKIN: Warm dry normal color NEURO: Alert and oriented x3. PSYCH: Normal mood and affect DS: Data Data Completed and Pending Completed studies during hospitalization: Noncontrast abdomen pelvis CT, abdominal ultrasound, abdominal x-ray, abdominal pelvis CT with IV contrast Labs on day of discharge: Labs from last 24 hours 12/12/23 12/12/23 12/11/23 07:36 05:02 21:56 WBC 9.2 RBC 4.09 L Hgb 12.8 L Hct 37.5 L MCV 91.7 MCH 31.3 H MCHC 34.1 RDW 11.7 Plt Count 238 MPV 9.3 Immature Gran % (Auto) 1.1 H Neut % (Auto) 74.2 H Lymph % (Auto) 13.9 L [place] % (Auto) 8.6 Eos % (Auto) 1.8 Baso % (Auto) 0.4 Lymph # (Auto) 1.28 [place] # (Auto) 0.79 Eos # (Auto) 0.17 Baso # (Auto) 0.04 Abs Immat Gran (auto) 0.10 H Absolute Neuts (auto) 6.8 Absolute Nucleated RBC 0.00 Nucleated RBC % 0.0 Sodium 139 Potassium 4.2 Chloride 101 Carbon Dioxide 30 Anion Gap 8 BUN 9 Creatinine 0.85 Estim Creat Clear Calc 104 Estimated GFR > 60 Glucose 176 H POC Cap
[2023-12-12] MEDS: DOCUSATE SODIUM 100 MG CAPSULE PO (09:07)
[2023-12-12] MEDS: amLODIPine BESYLATE 2.5 MG TABLET PO (09:07)
[2023-12-12] MEDS: polyethylene glycoL 3350 17 GM POWD.PACK PO (09:09)
[2023-12-12 11:54] LABS: Glucose Point of Care 192 mg/dl (65-105)
--- NOTE | 2023-12-12 13:30 | PC.NURSE ---
Pt discharged to home. VSS. Pt and spouse given discharge instructions regarding all medications: purpose, dosage, times and possible side effects. Pt has made a follow up appointment with his PCP for Saturday. Type 2 diabetis instructions given as well as HTN instructions. Pt instructed to cut way back on alcohol consumtion as it make pacreititis worse. Both pt and spouse verbalized understanding of instructions. Pt taken to his car via .
--- NOTE | 2023-12-12 16:23 | PCCCNOTE ---
Met with pt prior to discharge this morning. Pt stated he felt much better and has eaten breakfast and was to eat lunch and if he did not have abd pain then he would discharge home. Pt was agreeable to discharge and preferred to go home with his .
--- NOTE | 2023-12-13 14:12 | PC.NURSE ---
Discharge call back completed, doing well, made f/u appointment, understood all dc insructions, no questions or concerns
== END 2023-12-12 13:15 | disposition home or self-care (01) | DRG 439 ==
LOC: CHSED 07:36 → CHS2ND 07:52
PROVIDERS: Emergency Medicine; Nurse Practitioner Acute Care; Nurse Practitioner Family; Admitting Provider Internal Medicine; Emergency Provider Family Medicine; PCP Internal Medicine; Visit Provider Internal Medicine
DX: K85.20 Alcohol induced acute pancreatitis without necrosis or infection (principal); E87.1 Hypo-osmolality and hyponatremia; I10 Essential (primary) hypertension; E11.9 Type 2 diabetes mellitus without complications; E66.9 Obesity, unspecified; K76.0 Fatty (change of) liver, not elsewhere classified; Z87.891 Personal history of nicotine dependence
CPT/HCPCS: 36415; 74018; 74176; 74177; 76705; 80053; 82948; 83036; 83690; 85025; 86140; 87040; 87637; 96365; 96375; 99285; A9270; J1170; J1650; J1836; J1885; J1956; J2270; J2405; J7030; J7120; Q9967

== ENCOUNTER 2023-12-16 15:27 | Outpatient (CLI) | payer BC, SELFPAY ==
[2023-12-16 15:42] LABS: Hematocrit 43.3 % (40.0-54.0); Hemoglobin 15.1 g/dL (14.0-18.0); Mean Corpuscular HGB Conc 34.9 g/dL (32.0-36.0); Mean Corpuscular Hemoglobin 31.5 pg (27.0-31.0); Mean Corpuscular Volume 90.2 fL (78.0-102.0); Mean Platelet Volume 9.2 fl (8.7-11.0); Platelet Count Result 346 K/mm3 (150-420); Red Cell Distribution Width 11.2 % (11.6-14.4); White Blood Count 7.4 K/mm3 (4.8-10.8)
[2023-12-16 15:52] LABS: Alanine Aminotransferase 42 U/L (16-63); Albumin Level 2.8 g/dL (3.4-5.0); Alkaline Phosphatase 117 U/L (46-116); Amylase 65 U/L (25-115); Anion Gap 4 mmol/L (8-16); Aspartate Amino Transferase 18 U/L (15-37); Bilirubin,Total 0.3 mg/dL (0.00-1.00); Blood Urea Nitrogen 9 mg/dL (7-18); Calcium 8.7 mg/dL (8.5-10.1); Carbon Dioxide 34 mmol/L (21-32); Chloride 100 mmol/L (98-108); Estimated Glomerular Filt Rate > 60; Glucose 167 mg/dL (70-99); Lipase 136 U/L (16-77); Osmolality Calculated 288 mOsm/kg (285-295); Potassium 4.4 mmol/L (3.5-5.1); Sodium 138 mmol/L (136-145); Total Protein 7.3 g/dL (6.4-8.2)
[2023-12-16 15:53] LABS: Band Neutrophils Percent 1 % (0-6); Basophils Percent Manual 0 % (0-1); Eosinophils Absolute Manual 0.07 K/mm3 (0.02-0.5); Eosinophils Percent Manual 1 % (1-6); Lymphocytes Absolute Manual 2.59 K/mm3 (1.1-4.5); Lymphocytes Percent Manual 35 % (18-44); Metamyelocytes Percent 1 %; Monocytes Absolute Manual 0.59 K/mm3 (0.1-0.90); Monocytes Percent Manual 8 % (3-9); Myelocytes Percent 2 %; Neutrophils Absolute Manual 3.92 K/mm3 (1.3-6.7); Neutrophils Percent Manual 52 % (46-73); Total Cells Counted 100
[2023-12-16 15:54] LABS: Platelet Estimate Adequate (Adequate)
== END 2023-12-16 15:28 | disposition home or self-care (01) ==
LOC: CHSLAB 15:29
PROVIDERS: PCP Internal Medicine; Visit Provider Internal Medicine
DX: K85.90 Acute pancreatitis without necrosis or infection, unspecified (principal)
CPT/HCPCS: 36415; 80053; 82150; 83690; 85025

== ENCOUNTER 2024-01-06 07:47 | Outpatient (CLI) | payer BC, SELFPAY ==
--- NOTE | 2024-01-06 08:00 | EST_ITS ---
Patient Info Name: Perry Rodney Age: 53 years : 1970 Gender: Male Ht: 69 in Wt: 217 lbs BSA: 2.22 m2 HR: 97 bpm BP: 144 / 99 mmHg Heart Rhythm: Sinus Rhythm Technical Quality: Good Exam Date: 01/06/2024 8:53 AM Exam Location: [facility] Patient Status: Outpatient Admit Date: 01/06/2024 Staff Ordering Physician: Dinesh Kirby MD Attending Provider: Dinesh Kirby MD Exam Type: CA stress lexis w NM Study Info A treadmill exercise stress test was performed. History/Risk Factors Family History: Coronary Artery Disease Summary 1. 1. Negative Oscar exercise stress test for ischemic ST changes by ECG criteria. 2. 2. Good functional capacity, achieving 9.8 METs of workload. 3. 3. Baseline hypertension with hypertensive response to exercise. 4. 4. Appropriate HR response to exercise. 5. 5. Appropriate HR recovery at 1 minute post exercise. 6. 6. Nuclear scan to follow and will be reported separately. Please correlate with it. Protocol: Oscar Stress ECG Details Stage: REST Duration (min): 1 min : 26 sec Speed (mph): 0.0 Grade (%): 0 HR (bpm): 79 SBP (mmHg): 144 DBP (mmHg): 99 METS: --- Stage: REST Duration (min): 4 min : 33 sec Speed (mph): 0.0 Grade (%): 0 HR (bpm): 87 SBP (mmHg): 144 DBP (mmHg): 99 METS: --- Stage: STAGE 1 Duration (min): 1 min : 0 sec Speed (mph): 1.7 Grade (%): 10 HR (bpm): 97 SBP (mmHg): 144 DBP (mmHg): 99 METS: --- Stage: STAGE 1 Duration (min): 2 min : 0 sec Speed (mph): 1.7 Grade (%): 10 HR (bpm): 105 SBP (mmHg): 144 DBP (mmHg): 99 METS: --- Stage: STAGE 1 Duration (min): 3 min : 0 sec Speed (mph): 1.7 Grade (%): 10 HR (bpm): 109 SBP (mmHg): 178 DBP (mmHg): 78 METS: --- Stage: STAGE 2 Duration (min): 1 min : 0 sec Speed (mph): 2.5 Grade (%): 12 HR (bpm): 121 SBP (mmHg): 178 DBP (mmHg): 78 METS: --- Stage: STAGE 2 Duration (min): 2 min : 0 sec Speed (mph): 2.5 Grade (%): 12 HR (bpm): 130 SBP (mmHg): 178 DBP (mmHg): 78 METS: --- Stage: STAGE 2 Duration (min): 3 min : 0 sec Speed (mph): 2.5 Grade (%): 12 HR (bpm): 136 SBP (mmHg): 207 DBP (mmHg): 80 METS: --- Stage: STAGE 3 Duration (min): 1 min : 0 sec Speed (mph): 3.4 Grade (%): 14 HR (bpm): 150 SBP (mmHg): 207 DBP (mmHg): 80 METS: --- Stage: STAGE 3 Duration (min): 1 min : 31 sec Speed (mph): 3.4 Grade (%): 14 HR (bpm): 157 SBP (mmHg): 207 DBP (mmHg): 80 METS: --- Stage: RECOVERY Duration (min): 0 min : 28 sec Speed (mph): 0.0 Grade (%): 0 HR (bpm): 149 SBP (mmHg): 207 DBP (mmHg): 80 METS: --- Stage: RECOVERY Duration (min): 1 min : 28 sec Speed (mph): 0.0 Grade (%): 0 HR (bpm): 122 SBP (mmHg): 207 DBP (mmHg): 80 METS: --- Stage: RECOVERY Duration (min): 2 min : 28 sec Speed (mph): 0.0 Grade (%): 0 HR (bpm): 111 SB
--- NOTE | 2024-01-06 13:15 | WPDCARIOSTRE ---
Nuclear Stress Test INDICATIONS Indications: Dyspnea PROCEDURE Procedure Performed: Myocardial Perf Spect-Multi Procedure: Patient exercised on a standard Oscar protocol and at peak exercise was injected with 31.4 mCi of cardiolyte. Multiple tomographic images were obtained. These are of good quality. There is no perfusion defects with stress imaging. A separate resting was obtained after patient was injected with 9.7 mCi of cardiolyte. Multiple tomographic images were obtained. These are of good quality. There is no perfusion defects with rest imaging. CONCLUSION Conclusion: 1. Normal myocardial perfusion imaging demonstrating no perfusion defects with stress or rest imaging. 2. No evidence of reversible ischemia. 3. Left ventriculogram demonstrates normal measured ejection fraction of 62% with no wall motion abnormalities. 4. TID score 0.96 is normal.
== END 2024-01-06 07:48 | disposition home or self-care (01) ==
LOC: CHSIMG 07:50
PROVIDERS: PCP Internal Medicine; Visit Provider Internal Medicine
DX: R94.31 Abnormal electrocardiogram [ECG] [EKG] (principal)
CPT/HCPCS: 78452; 93017; A9502

== ENCOUNTER 2025-09-08 09:37 | Outpatient (CLI) | payer BC, SELFPAY ==
[2025-09-08 10:00] LABS: Add Urine Microscopic? NO; Appearance Urine Clear (Clear); Glucose Urine UA 2+ (Negative); Hematocrit 44.7 % (40.0-54.0); Hemoglobin 15.8 g/dL (14.0-18.0); Immature Granulocyte Percent A 0.4 % (0.0-0.0); Leukocyte Esterase Ur Negative LEU/UL (Negative); Lymphocytes Absolute Auto 1.59 K/mm3 (1.10-4.50); Mean Corpuscular HGB Conc 35.3 g/dL (32-36); Mean Corpuscular Hemoglobin 32.0 pg (27.0-31.0); Mean Corpuscular Volume 90.5 fL (78.0-102.0); Nitrate Urine Negative (Negative); Nucleated Red Blood Cells Absolute Auto 0.00 K/mm3 (0.00-0.00); Nucleated Red Blood Cells Perc 0.0 % (0-0.0); Platelet Count Result 215 K/mm3 (150-420); Red Blood Count 4.94 M/mm3 (4.70-6.10); Specific Grav Ur 1.015 (1.010-1.020); White Blood Count 4.5 K/mm3 (4.8-10.8)
[2025-09-08 10:22] LABS: Alanine Aminotransferase 49 U/L (6-50); Albumin Level 4.5 g/dL (3.5-5.1); Alkaline Phosphatase 92 U/L (38-126); Anion Gap 9 mmol/L (4-12); Aspartate Amino Transferase 37 U/L (17-59); Bilirubin,Total 0.7 mg/dL (0.2-1.3); Blood Urea Nitrogen 15 mg/dL (9-20); Calcium 9.7 mg/dL (8.4-10.2); Carbon Dioxide 29 mmol/L (22-30); Chloride 105 mmol/L (98-107); Cholesterol 252 mg/dL (0-200); Creatine Kinase 66 U/L (55-170); Estimated Glomerular Filt Rate > 60; Glucose 170 mg/dL (65-110); HDL Direct 38 mg/dL; Osmolality Calculated 300 mOsm/kg (285-295); Potassium 4.9 mmol/L (3.4-5.0); Sodium 143 mmol/L (137-145); Total Protein 8.1 g/dL (6.3-8.2)
[2025-09-08 10:32] LABS: Hemoglobin A1C 6.8 % (<5.7); Triglycerides > 525 mg/dL (<150)
--- OUTSIDE RECORDS SUMMARY | 2025-09-08 10:35 | XMS_ITS | Clinical Summary ---
Author Organization [facility] Address [address] [place] [id number] Care Team Providers Care Director Of [employer] Name Role Phone Unavailable Primary Care Provider Unavailabl e Social History Tobacco Use Types Packs/Day Years Used Date Smoking Tobacco: Never Assessed Sex and Gender Information Value Date Recorded Sex Assigned at Not on file Legal Sex Male 5:46 PM [employer] Gender Identity Not on file Sexual Orientation Not on file Plan of Treatment Health Maintenance Due Date Last Done Comments Colorectal Cancer Screening Colonoscopy (10 Years) 1970 Annual Physical 1974 Hepatitis C 1989 DTaP, Tdap and Td Vaccines ( 1 - Tdap) 1990 Hepatitis B Vaccines (1 of 3 - 19+ 3-dose series) 1990 Pneumococcal Vaccine: 50+ Ye ars (1 of 1 - PCV) 2021 Zoster Vaccines (1 of 2) 2021 COVID-19 Vaccine ( - 2024-2 6 season) 2025 Influenza Adult (#1) 2025 Hepatitis A Vaccines Aged Out No long er eligible based on patient's age to complete this topic Meningococcal B Vaccine Aged Out No l onger eligible based on patient's age to complete this topic Meningococcal Vaccine Aged Out No kira corin eligible based on patient's age to complete this topic RSV Immunizations Under 20 Months Aged Out No longer eligible based on patient's age to complete this topic
== END 2025-09-08 09:38 | disposition home or self-care (01) ==
LOC: CHSLAB 09:38
PROVIDERS: PCP Internal Medicine; Visit Provider Internal Medicine
DX: E11.9 Type 2 diabetes mellitus without complications (principal); N39.0 Urinary tract infection, site not specified; E78.2 Mixed hyperlipidemia; I10 Essential (primary) hypertension
CPT/HCPCS: 36415; 80053; 80061; 81003; 82550; 83036; 85025